=== PATIENT | female | born 1970 ===

== ENCOUNTER 2023-04-02 05:56 | Day surgery (SDC) | payer OTHER ==
[2023-04-02] MEDS ORDERED: DIPHENHYDRAMINE HCL 50 MG/ML VIAL 1ML IV ONE (08:30)
[2023-04-02] MEDS ORDERED: MIDAZOLAM HCL/PF 5 MG/ML VIAL IV ONE (08:30)
[2023-04-02] MEDS ORDERED: PROTONIX20 MG PO (08:30)
[2023-04-02] MEDS ORDERED: MEPERIDINE HCL/PF 50 MG/ML VIAL IV ONE (08:30)
== END 2023-04-02 11:00 | disposition home or self-care (01) ==
LOC: AMB-ENDOS 05:56
PROVIDERS: ATTEND Surgery
DX: K29.00 Acute gastritis without bleeding (principal); R10.13 Epigastric pain; E66.01 Morbid (severe) obesity due to excess calories; Z20.822 Contact with and (suspected) exposure to COVID-19